=== PATIENT | male | born 1980 | race Two or more races ===

== ENCOUNTER 2023-04-30 11:11 | Emergency (ER) | payer MEDICAID ==
[~2023-04-30] VITALS: Ht 175.3 cm; Wt 72.1 kg
[2023-04-30 11:16] VITALS: BP 127/88
--- NOTE | 2023-04-30 11:32 | NUR ---
DR GOOD IN ROOM FOR EXAM
[2023-04-30] MEDS ORDERED: PRED20TA5 PO (11:41)
[2023-04-30] MEDS ORDERED: DIPH25TA53 PO (11:41)
--- NOTE | 2023-04-30 11:41 | NUR ---
42 yo male with rash for one month. Pt was seen at the hospital one month ago and was treated with antibiotics and Sugey with improvement in symptoms. Pt reports return of rash for three weeks. Pt with itch. Pt denies fever, chills, nausea or vomiting. Pt denies chest pain, SOB, or difficulty swallowing. Pt denies new medications, soaps or detergents.
--- NOTE | 2023-04-30 11:57 | NUR ---
Patient discharged with v/s stable. Written and verbal after care instructions given and explained. Patient verbalized understanding. Ambulatory with steady gait. All questions addressed prior to discharge. Advised to follow up with PMD.
== END 2023-04-30 11:47 | disposition home or self-care (01) ==
LOC: MED 11:11
DX: R21 Rash and other nonspecific skin eruption (principal); F17.200 Nicotine dependence, unspecified, uncomplicated
CPT/HCPCS: 99283